=== PATIENT | female | born 1990 | race Caucasian/White ===

== ENCOUNTER 2022-06-25 08:03 | Emergency (ER) | payer OTHER ==
[~2022-06-25] VITALS: Ht 170.2 cm; Wt 54.4 kg
[~2022-06-25 08:03] MED LIST: ACID REDUCER; AMOX500 PO; CEPH500 PO; CRUTCH3 USE; CYCL10 PO; Carisoprodol350 MG PO; DIPATR PO; ERYT.5TO BOTHEYES; Esgic Tablet1 EACH PO; HYDACE10B PO; HYDACE5 PO; HYDMOR4 PO; HYOS.125 SL; IBU800 MG PO; IBUP800 PO; LANS30EC PO; LEVFLO500 PO; METO10 PO; METPRE4DP PO; MOVANTIK12.5 MG PO; NEXPLANON68 MG SQ; Norco 5-325 Ta1 EACH PO; O; ONDA4ODT MM; ONDA8ODT MM; OXYACE5T PO; PRED10 PO; PROC5 PO; PROM25 PO; PROM6.25SY PO; Percocet 5-3251 EACH PO; RANI150; RXHYDACE PO; RXONDA4ODT MM; RXPROM25S PR; SULTRIDS PO; VICODIN 5-3001 EACH PO; Verotin-Gr Cap1 EACH PO; Zofran Odt4 MG SL; Zofran4 MG PO; [UNRECOGNIZED DRUG - OTHER]
[2022-06-25 08:49] LABS: BASOPHILS ABSOLUTE AUTO 0.03 K/mm3 (0.00-0.23); BASOPHILS PERCENT AUTO 0 % (0-2); EOSINOPHILS ABSOLUTE AUTO 0.02 K/mm3 (0.00-0.68); EOSINOPHILS PERCENT AUTO 0 % (0-6); Hematocrit 41.3 % (33.0-51.0); Hemoglobin 14.2 g/dL (11.5-16.0); IMMATURE GRAN ABSOLUTE AUTO 0.03 K/mm3 (0.00-0.10); IMMATURE GRAN PERCENT AUTO 0 % (0-1); LYMPHOCYTES ABSOLUTE AUTO 0.89 K/mm3 (0.84-5.20); LYMPHOCYTES PERCENT AUTO 11 % (21-46); MONOCYTES ABSOLUTE AUTO 0.53 K/mm3 (0.16-1.47); MONOCYTES PERCENT AUTO 6 % (4-13); Mean Corpuscular HGB 30.2 pg (26.0-34.0); Mean Corpuscular HGB Conc 34.4 g/dL (31.5-36.5); Mean Corpuscular Volume 88 fL (80-100); Mean Platelet Volume 11.2 fL (9.1-12.4); NEUTROPHILS ABSOLUTE AUTO 6.89 K/mm3 (1.96-9.15); NEUTROPHILS PERCENT AUTO 82 % (41-73); Platelet Count 188 K/mm3 (150-400); RDW Coefficient Variation 11.8 % (11.7-14.2); White Blood Cell Count 8.39 K/mm3 (4.00-11.30)
[2022-06-25 09:02] LABS: Albumin, Blood 4.5 g/dL (3.4-5.0); Albumin/Globulin Ratio 1.2 (0.8-1.8); Bilirubin, Total 0.4 mg/dL (0.1-1.0); Bun/Creatinine Ratio 29.8 (12.0-20.0); Calcium, Blood 9.8 mg/dL (8.5-10.1); Creatinine, Blood 0.81 mg/dL (0.40-1.00); Globulin, Blood 3.9 g/dL (2.2-4.0); Total Protein, Blood 8.4 g/dL (6.4-8.2)
[2022-06-25] MEDS ORDERED: ONDA4ODT MM (09:40)
== END 2022-06-25 10:12 | disposition home or self-care (01) ==
LOC: ER 08:03
PROVIDERS: Physician Assistant
DX: R11.2 Nausea with vomiting, unspecified (principal); R19.7 Diarrhea, unspecified; Z88.1 Allergy status to other antibiotic agents; Z88.2 Allergy status to sulfonamides; Z88.8 Allergy status to other drugs, medicaments and biological substances
CPT/HCPCS: 36415; 80053; 83690; 85025; 96361; 96374; 99283-25; J2405; J7030

== ENCOUNTER 2024-12-15 05:51 | Emergency (ER) | payer OTHER ==
[~2024-12-15] VITALS: Ht 170.2 cm; Wt 59.9 kg
[2024-12-15 06:25] VITALS: BP 122/72
[2024-12-15] MEDS ORDERED: Fluorescein Sod 1MG Opth Strips LEFTEYE ONE (06:55)
[2024-12-15] MEDS ORDERED: Tetracaine HCl/Pf 0.5% Opth Soln 4 ml BOTHEYES ONE (06:55)
[2024-12-15] MEDS ORDERED: Ondansetron 4 MG SoluTab SL ONE (07:15)
[2024-12-15] MEDS ORDERED: KETOROLAC TROMET5 ML TOP ×2 (08:01→10:10)
[2024-12-15] MEDS ORDERED: Ciprofloxacin2.5 ML IO ×2 (08:01→10:10)
== END 2024-12-15 08:07 | disposition home or self-care (01) ==
LOC: ER 05:51
DX: S05.02XA Injury of conjunctiva and corneal abrasion without foreign body, left eye, initial encounter (principal); X58.XXXA Exposure to other specified factors, initial encounter; Z79.899 Other long term (current) drug therapy; Z88.2 Allergy status to sulfonamides; Z88.1 Allergy status to other antibiotic agents
CPT/HCPCS: 99283; A9270